=== PATIENT | male | born 1995 | race Two or more races ===

== ENCOUNTER 2017-09-09 12:42 | Emergency (ER) | payer BC, OTHER ==
[~2017-09-09] VITALS: Ht 167.6 cm; Wt 170.0 kg
[2017-09-09 13:45] LABS: Basophils # (auto) 0 uL; Basophils % (auto) 0.1 % (0.0-2.0); Eosinophils # (auto) 0 uL; Eosinophils % (auto) 0.4 % (0.0-7.0); Hematocrit 46.2 % (41.0-53.0); Hemoglobin 15.5 g/dL (13.5-17.5); Lymphocytes # (auto) 1.5 uL; Lymphocytes % (auto) 15.4 % (10.0-50.0); Mean Corpuscular Hemoglobin 29.8 pg (28.0-32.0); Mean Corpuscular Hgb Conc. 33.6 g/dL (32.0-36.0); Mean Corpuscular Volume 88.8 fL (80.0-100.0); Monocytes # (auto) 0.9 uL; Monocytes % (auto) 8.6 % (0.0-12.0); Neutrophils # (auto) 7.6 uL; Neutrophils % (auto) 75.5 % (37.0-80.0); Nucleated Red Blood Cells % 0.1 %; Platelet Count (auto) 241 10^3/uL (140-450); Red Cell Distribution Width 13.2 % (11.8-14.3); White Blood Cell 10.1 10^3/uL (4.4-10.8)
[2017-09-09 14:16] LABS: BUN/Creatinine Ratio 10.6; Bilirubin, Total 0.4 mg/dL (0.2-1.0); Calcium 8.8 mg/dL (8.5-10.1); Magnesium 2.3 mg/dL (1.6-2.6); Potassium 3.9 mmol/L (3.5-5.1); Total Protein 7.5 g/dL (6.4-8.2)
[2017-09-09 15:23] LABS: Alcohol, Urine < 3.0 mg/dL (0-5); Amphetamine Screen, Urine NEGATIVE (NEGATIVE); Barbiturate Scree,Urine NEGATIVE (NEGATIVE); Benzodiazephine Screen, Urine NEGATIVE (NEGATIVE); Cannabinoid Screen, Urine POSITIVE (NEGATIVE); Cocaine Screen, Urine NEGATIVE (NEGATIVE); Opiate Scree,Urine NEGATIVE (NEGATIVE); Phencyclidine Screen, Urine NEGATIVE (NEGATIVE)
[2017-09-09] MEDS ORDERED: SODIUM CHLORIDE 0.9% 1,000 ML IV ONE (15:23)
[2017-09-09] MEDS ORDERED: ASPirin 81 mg TAB PO ONE (15:30)
[2017-09-09 15:53] LABS: Urine Bacteria NONE SEEN /hpf (None Seen); Urine Blood Negative /uL (Negative); Urine Mucus FEW (None Seen); Urine Specific Gravity 1.021 (1.001-1.035); Urine WBC 9 /hpf (0 - 3)
[2017-09-09 16:00] LABS: INR 0.95 (0.9-1.15); Partial Thromboplastin Time 29.2 sec (22.64-33.71); Prothrombin Time 10.4 sec (9.37-12.3)
[2017-09-09] MEDS ORDERED: TEMAZEPAM 15 MG CAP PO PRN (17:30)
[2017-09-09] MEDS ORDERED: NITROGLYCERIN 0.4 MG SL TAB SL PRN (17:30)
[2017-09-09] MEDS ORDERED: LORazepam 0.5 MG TAB PO PRN (17:30)
[2017-09-09] MEDS ORDERED: MORPHINE SULFATE 4 MG/ML SYR/VIAL IV PRN (17:30)
[2017-09-09] MEDS ORDERED: ACETAMINOPHEN 500 MG TAB PO PRN (17:30)
[2017-09-09] MEDS ORDERED: HYDROcodone-ACET 5/325MG TAB PO PRN (17:30)
[2017-09-09] MEDS ORDERED: LACTULOSE 20Gm/30ML SOLN PO PRN (17:30)
[2017-09-09] MEDS: SODIUM CHLORIDE 0.9% 1,000 ML IV SCH (17:40)
[2017-09-09] MEDS ORDERED: ENOXAPARIN SOD 80 MG/0.8ML SYRINGE SC ONE (17:45)
[2017-09-09] MEDS: PROMETHAZINE HCL 25 MG/ML 1ML IV PRN (19:58)
[2017-09-09] MEDS: MORPHINE SULFATE 4 MG/ML SYR/VIAL IV PRN (19:58)
[2017-09-09] MEDS ORDERED: ATORVASTATIN 20 MG TAB PO SCH (22:00)
[2017-09-10 04:45] LABS: Cholesterol 106 mg/dL (< 200); HDL Cholesterol 29 mg/dL (40-59); LDL Cholesterol 76 mg/dL (< 100); Triglycerides 101 mg/dL (< 150)
[2017-09-10] MEDS: MORPHINE SULFATE 4 MG/ML SYR/VIAL IV PRN (06:38)
[2017-09-10] MEDS: PROMETHAZINE HCL 25 MG/ML 1ML IV PRN (06:38)
[2017-09-10] MEDS: SODIUM CHLORIDE 0.9% 1,000 ML IV SCH (06:42)
[2017-09-10] MEDS ORDERED: PANTOPRAZOLE 40 MG TAB PO SCH (10:00)
[2017-09-10] MEDS ORDERED: ASPirin 81 mg TAB PO SCH (10:00)
[2017-09-10] MEDS ORDERED: NITROGLYCERIN 0.2MG/HR TOPICAL PATCH TD SCH (10:00)
[2017-09-10] MEDS ORDERED: ENOXAPARIN SOD 80 MG/0.8ML SYRINGE SC SCH (10:00)
[2017-09-10] MEDS ORDERED: NITROGLYCERIN 0.4 MG SL TAB SL ONE (13:01)
[2017-09-10] MEDS ORDERED: IOHEXOL 350 MG/ML 100ML IJ ONE (13:27)
[2017-09-10] MEDS ORDERED: THROAT LOZENGES(CEPASTAT) MT PRN (15:45)
[2017-09-10 17:23] VITALS: BP 114/68
[2017-09-10 17:41] VITALS: BP 114/68
[2017-09-10] MEDS ORDERED: ASCORBIC ACID 500 MG TAB PO SCH (22:00)
== END 2017-09-10 17:53 | disposition home or self-care (01) ==
LOC: ER 12:42 → TELE 12:43 → UNDOADMIN 12:43 → TELE 09-10 17:53
DX: I20.9 Angina pectoris, unspecified (principal); R79.89 Other specified abnormal findings of blood chemistry; F17.210 Nicotine dependence, cigarettes, uncomplicated
CPT/HCPCS: 36415; 71046; 80053; 80061; 80307; 81001; 82550; 83735; 84443; 84484; 85025; 85379; 85610; 85652; 85730; 86141; 86658; 93005; 93306; 94761; 96361; 96372; 96374; 96375; 99285; J1650; J2270; J2550; J7030; Q9967

== ENCOUNTER 2018-02-07 17:59 | Emergency (ER) | payer BC, OTHER ==
[~2018-02-07] VITALS: Ht 170.2 cm; Wt 81.6 kg
[2018-02-07 22:23] VITALS: BP 126/74
== END 2018-02-07 22:25 | disposition home or self-care (01) ==
LOC: ER 17:59
DX: S83.8X2A Sprain of other specified parts of left knee, initial encounter (principal); F17.210 Nicotine dependence, cigarettes, uncomplicated; Y08.89XA Assault by other specified means, initial encounter; Y93.89 Activity, other specified; Y99.8 Other external cause status; Y92.89 Other specified places as the place of occurrence of the external cause
CPT/HCPCS: 73590